=== PATIENT | female | born 1975 | race Caucasian/White ===

== ENCOUNTER 2018-10-23 23:37 | Emergency (ER) | payer OTHER ==
[~2018-10-23] VITALS: Ht 180.3 cm; Wt 63.5 kg
--- NOTE | 2018-10-24 00:07 | PHYS DOC ---
Adult General Chief Complaint Chief Complaint: ABDOMINAL PAIN HPI HPI 43-year-old female presents with sudden onset right lower quadrant abdominal pain. The patient was feeling normal throughout the day until she had the sudden onset pain. She describes it as a deep, intense cramping. The patient is also nauseous from the pain. The patient was having intercourse about an hour before this episode. She's had no bleeding or unusual discharge. She does not believe this is related to her pain. Patient did have ovarian cyst about 18 years ago that self resolved. The patient has not had a fever or chills at home. She's had no previous abdominal surgery. Review of Systems Review of Systems Constitutional: Denies fever or chills [] Eyes: Denies change in visual acuity, redness, or eye pain [] HENT: Denies nasal congestion or sore throat [] Respiratory: Denies cough or shortness of breath [] Cardiovascular: No additional information not addressed in HPI [] GI: RLQ abdominal pain, nausea. No vomiting, bloody stools or diarrhea [] : Denies dysuria or hematuria [] Musculoskeletal: Right flank pain or joint pain [] Integument: Denies rash or skin lesions [] Neurologic: Denies headache, focal weakness or sensory changes [] Endocrine: Denies polyuria or polydipsia [] All other systems were reviewed and found to be within normal limits, except as documented in this note. Current Medications Current Medications Current Medications Medications (Trade) Dose Ordered Sig/Brian Start Time Stop Time Status Last Admin Dose Admin Hydromorphone HCl (Dilaudid) 1 mg 1X ONCE 10/24/18 00:00 10/24/18 00:01 UNV Ondansetron HCl (Zofran) 4 mg 1X ONCE 10/24/18 00:00 10/24/18 00:01 UNV Sodium Chloride 1,000 ml @ 1,000 mls/hr 1X ONCE 10/24/18 00:00 10/24/18 00:59 UNV Physical Exam Physical Exam Constitutional: Well developed, well nourished, mild acute distress, non-toxic appearance. [] HENT: Normocephalic, atraumatic, bilateral external ears normal, oropharynx moist, no oral exudates, nose normal. [] Eyes: PERRLA, EOMI, conjunctiva normal, no discharge. [] Neck: Normal range of motion, no tenderness, supple, no stridor. [] Cardiovascular:Heart rate regular rhythm, no murmur [] Lungs & Thorax: Bilateral breath sounds clear to auscultation [] Abdomen: Bowel sounds normal, soft, RLQ tenderness, no masses, no pulsatile masses. [] Skin: Warm, dry, no erythema, no rash. [] Back: Right-sided CVA tenderness. [] Extremities: No tenderness, no cyanosis, no clubbing, ROM intact, no edema. [] Neurologic: Alert and oriented X 3, normal motor function, normal sensory function, no focal deficits noted. [] Psychologic: Affect normal, judgement normal, mood normal. [] EKG EKG [] Radiology/Procedures Radiology/Procedures [] Impressions: Pelvic ultrasound including transvaginal scanning 10/24/2018. Reason for exam: Pain. Evaluate for ovarian torsion. Initial scanning was done through the patient's abdominal wall and bladder. The uterus is not well seen. Neither ovary could be visualized. Scanning performed in the right lower quadrant shows a segment of a bowel-like structure measuring about 1.5 cm. This is indeterminate. No adjacent free fluid is seen. Transvaginal scanning was performed to better evaluate the uterus and adnexal structures. By transvaginal scanning, the uterus is shown to be normal in size, measuring about 7.8 x 5.4 x 3.8 cm. The endometrium is not thickened, showing measurement of 5 mm. There is poor definition of the endometrial margin, raising the possibility of adenomyosis. No fibroid is seen. Both ovaries are demonstrated and are normal in size. They have internal blood flow. There is a 1.6 cm and the left ovary. A trace of free fluid is seen. IMPRESSION: Small left ovarian cyst. Bowel like structure seen in right lower abdomen. This is indeterminate. Findings are not convincing of appendicitis. Electronically signed by: Ray Lara Jr., MD (10/24/2018 1:44 AM) [facility] DICTATED AND SIGNED BY: RAY LARA Jr, MD DATE: 10/24/18 0140 CC: AIDEE HUMPHREY DO; PCP,UNKNOWN CT abdomen and pelvis with IV contrast 10/24/2018. Reason for exam: Right lower quadrant pain. CT images were obtained through the abdomen and pelvis using an infusion of 75 mL Isovue-370. No oral contrast was given. Correlation is made with a pelvic ultrasound done earlier in the day. Exposure: One or more of the following individualized dose reduction techniques were utilized for this examination: 1. Automated exposure control 2. Adjustment of the mA and/or kV according to patient size 3. Use of iterative reconstruction technique. FINDINGS: The lung bases are clear. The liver and spleen are homogeneous in density and normal in configuration. Both kidneys enhance with contrast. There is no apparent mass or obstruction. The adrenal glands are not enlarged. The pancreas appears normal. No retroperitoneal or mesenteric adenopathy is seen. There is no apparent abdominal soft tissue mass or clearcut inflammatory process. Evaluation for subtle inflammatory abnormalities is limited due to lack of oral contrast and lack of intra-abdominal fat. Images through the pelvis show no abnormality of the distal ureters or bladder. No pelvic or inguinal adenopathy is seen. There is no apparent pelvic mass. The uterus shows apparent division of the endometrial cavities without indentation of the fundus. This suggests subseptate uterus. A normal appendix is thought to be seen inferior to the cecum. No separate pelvic mass or clearcut inflammatory process is seen. Evaluation is limited due to lack of oral contrast and lack of intrapelvic fat. There is moderate stool through the colon without evidence of obstruction. IMPRESSION: No evidence of acute abnormality. Electronically signed by: Ray Lara Jr., MD (10/24/2018 2:09 AM) [facility] Course & Med Decision Making Course & Med Decision Making Pertinent Labs and Imaging studies reviewed. (See chart for details) The patient's labs are unremarkable. Her urinalysis is unremarkable. I have given her Zofran and 1 mg of Dilaudid for pain. This has controlled her pain. Her pelvic ultrasound does not show any abnormal findings, but is indeterminate for the appendix. I will order CT of the abdomen and pelvis to clarify this. The CT scan is negative for acute findings. There is no appendicitis. I'm unsure exactly why the patient has had some much pain. She does have moderate stool in the colon, but nothing as is evident. I will discharge her with a prescription of [place] 5/325 for pain. She is stable for discharge at this time. [] Dragon Disclaimer Dragon Disclaimer This electronic medical record was generated, in whole or in part, using a voice recognition dictation system. Departure Departure: Referrals: PCP,UNKNOWN (PCP) Scripts Hydrocodone Bit/Acetaminophen (NOR[place] 5-325 TABLET) 1 Each Tablet 1 TAB PO PRN Q6HRS PRN for PAIN, #10 TAB 0 Refills Prov: AIDEE HUMPHREY DO 10/24/18 AIDEE HUMPHREY DO Oct 24, 2018 00:07
[2018-10-24 00:20] LABS: BASO # 0.1 x10^3/uL (0.0-0.2); BASO % 1 % (0-3); EOS # 0.3 x10^3/uL (0.0-0.7); EOS % 3 % (0-3); HEMOGLOBIN 14.5 g/dL (12.0-15.5); LYMPH # 2.2 x10^3/uL (1.0-4.8); LYMPH % 21 % (24-48); MEAN CORPUSCULAR HEMOGLOBIN 32 pg (25-35); MEAN CORPUSCULAR HGB CONC 34 g/dL (31-37); MEAN CORPUSCULAR VOLUME 96 fL (79-100); MONO # 0.9 x10^3/uL (0.0-1.1); MONO % 9 % (0-9); NEUT # 6.7 x10^3uL (1.8-7.7); NEUT % 66 % (31-73); PLATELET COUNT 298 x10^3/uL (140-400); RED BLOOD COUNT 4.48 x10^6/uL (3.50-5.40); RED CELL DISTRIBUTION WIDTH 12.6 % (11.5-14.5); WHITE BLOOD COUNT 10.1 x10^3/uL (4.0-11.0)
[2018-10-24 00:28] LABS: ALBUMIN 3.9 g/dL (3.4-5.0); ALBUMIN/GLOBULIN RATIO 1.3 (1.0-1.7); CALCIUM 9.1 mg/dL (8.5-10.1); POTASSIUM 4.4 mmol/L (3.5-5.1); TOTAL BILIRUBIN 0.2 mg/dL (0.2-1.0); TOTAL PROTEIN 6.9 g/dL (6.4-8.2)
[2018-10-24] MEDS ORDERED: HYDROmorphone PF 1 MG/ML DISP.SYRIN IV ONE (00:30)
[2018-10-24] MEDS ORDERED: IV NORMAL SALINE 1,000ML 1,000 ML IV ONE (00:30)
[2018-10-24] MEDS ORDERED: ONDANSETRON PF 4 MG/2 ML VIAL. IV ONE (00:30)
[2018-10-24 01:17] LABS: BILIRUBIN,URINE NEG (NEG); CLARITY,URINE CLEAR; COLOR,URINE YELLOW; GLUCOSE,URINE NEG (NEG); NITRITE,URINE NEG (NEG); RBC,URINE RARE /HPF (0-2); UROBILINOGEN,URINE 0.2 mg/dL (0.2 mg/dL); WBC,URINE OCC /HPF (0-4)
[2018-10-24 01:18] LABS: BACTERIA,URINE 0 /HPF (0-FEW); SQUAMOUS EPITHELIAL CELL,UR OCC /LPF
[2018-10-24] MEDS ORDERED: CONTRAST GIVEN MC PRN (01:30)
--- NOTE | 2018-10-24 01:48 | RAD ---
Pelvic ultrasound including transvaginal scanning 10/24/2018. Reason for exam: Pain. Evaluate for ovarian torsion. Initial scanning was done through the patient's abdominal wall and bladder. The uterus is not well seen. Neither ovary could be visualized. Scanning performed in the right lower quadrant shows a segment of a bowel-like structure measuring about 1.5 cm. This is indeterminate. No adjacent free fluid is seen. Transvaginal scanning was performed to better evaluate the uterus and adnexal structures. By transvaginal scanning, the uterus is shown to be normal in size, measuring about 7.8 x 5.4 x 3.8 cm. The endometrium is not thickened, showing measurement of 5 mm. There is poor definition of the endometrial margin, raising the possibility of adenomyosis. No fibroid is seen. Both ovaries are demonstrated and are normal in size. They have internal blood flow. There is a 1.6 cm and the left ovary. A trace of free fluid is seen. IMPRESSION: Small left ovarian cyst. Bowel like structure seen in right lower abdomen. This is indeterminate. Findings are not convincing of appendicitis. Electronically signed by: Ray Woods Jr., MD (10/24/2018 1:44 AM) [facility]
[2018-10-24] MEDS ORDERED: IOHEXOL 300 MG/ML 75 ML VIAL. IV ONE (02:00)
--- NOTE | 2018-10-24 02:12 | RAD ---
CT abdomen and pelvis with IV contrast 10/24/2018. Reason for exam: Right lower quadrant pain. CT images were obtained through the abdomen and pelvis using an infusion of 75 mL Isovue-370. No oral contrast was given. Correlation is made with a pelvic ultrasound done earlier in the day. Exposure: One or more of the following individualized dose reduction techniques were utilized for this examination: 1. Automated exposure control 2. Adjustment of the mA and/or kV according to patient size 3. Use of iterative reconstruction technique. FINDINGS: The lung bases are clear. The liver and spleen are homogeneous in density and normal in configuration. Both kidneys enhance with contrast. There is no apparent mass or obstruction. The adrenal glands are not enlarged. The pancreas appears normal. No retroperitoneal or mesenteric adenopathy is seen. There is no apparent abdominal soft tissue mass or clearcut inflammatory process. Evaluation for subtle inflammatory abnormalities is limited due to lack of oral contrast and lack of intra-abdominal fat. Images through the pelvis show no abnormality of the distal ureters or bladder. No pelvic or inguinal adenopathy is seen. There is no apparent pelvic mass. The uterus shows apparent division of the endometrial cavities without indentation of the fundus. This suggests subseptate uterus. A normal appendix is thought to be seen inferior to the cecum. No separate pelvic mass or clearcut inflammatory process is seen. Evaluation is limited due to lack of oral contrast and lack of intrapelvic fat. There is moderate stool through the colon without evidence of obstruction. IMPRESSION: No evidence of acute abnormality. Electronically signed by: Ray Woods Jr., MD (10/24/2018 2:09 AM) [facility]
[2018-10-24] MEDS ORDERED: HYDR-3165 PO (02:24)
[2018-10-24 02:30] VITALS: BP 99/57
[2018-10-24] MEDS ORDERED: HYDROcodone/APAP 5/325MG 1 TAB TABLET PO ONE (03:00)
== END 2018-10-24 02:30 | disposition home or self-care (01) ==
LOC: ER 23:37
DX: N83.202 Unspecified ovarian cyst, left side (principal); R10.31 Right lower quadrant pain
CPT/HCPCS: 36415; 74177; 76830; 76856; 80053; 81001; 85025; 96374; 96375; 99284; J1170; J2405; Q9967; 96361; J7030

== ENCOUNTER → 2021-02-19 | Outpatient (CLI) | payer OTHER ==
[~2021-02-19] MED LIST: HYDR-3165 PO
--- NOTE | 2021-02-19 09:56 | RAD ---
EXAM: Bilateral screening mammogram. HISTORY: 45-year-old female presents for baseline mammography. TECHNIQUE: Full-field digital craniocaudal, exaggerated craniocaudal and mediolateral oblique views o f both breasts are obtained for evaluation. Computer aided detection was applied. COMPARISON: None. This is baseline mammogram. BREAST PARENCHYMAL DENSITY: Level D - Extremely dense. FINDINGS: There is no suspicious mass, microcalcification or region of architectural distortion. IMPRESSION: BI-RADS Category 2: Benign finding(s). RECOMMENDATION: Annual mammography is recommended. If your mammogram demonstrates that you have dense breast tissue, which could hide abnormalities, and if you have other risk factors for breast cancer that have been identified, you might benefit from s upplemental screening tests that may be suggested by your ordering physician. Dense breast tissue, i n and of itself, is a relatively common condition. This information is not provided to cause undue c oncern, but rather to raise your awareness and to promote discussion with your physician regarding th e presence of other risk factors, in addition to dense breast tissue. A report of your mammography re sults will be sent to you and your physician. You should contact your physician if you have any ques tions or concerns regarding this report. Mammography is a sensitive method for finding small breast cancers, but it does not detect them all a nd is not a substitute for careful clinical examination. A negative mammogram does not negate a clin ically suspicious finding and should not result in delay in biopsying a clinically suspicious abnorma lity. PQRS compliance statement - Patient information was entered into a reminder system with a target due date for the next mammogram. "Our facility is accredited by the [employer] Mammography Program." Electronically signed by: Sofia Trejo MD (02/19/2021 9:54 AM) [id number]
== END ==
LOC: MAMMO 09:16
PROVIDERS: ATTEND Physician Assistant Medical
DX: Z12.31 Encounter for screening mammogram for malignant neoplasm of breast (principal)
CPT/HCPCS: 77067